=== PATIENT | female | born 1995 | race African-American/Black ===

== ENCOUNTER 2019-06-29 18:58 | Emergency (ER) | payer SELFPAY ==
[~2019-06-29] VITALS: Ht 149.9 cm; Wt 61.2 kg
[2019-06-29 19:10] VITALS: BP 119/60
--- NOTE | 2019-06-29 19:49 | PHYS DOC ---
Past Medical History Past Medical History: Other Additional Past Medical Histor: SICKLE CELL TRAIT (DEANNA NEGRON APRN) Past Surgical History: (DEANNA NEGRON APRN) Alcohol Use: Occasionally Drug Use: None (DEANNA NEGRON APRN) Attending Signature I have participated in the care of this patient and I have reviewed and agree wi th all pertinent clinical information above including history, exam, and recommendations. (KEL RAMIREZ MD) Adult General Chief Complaint Chief Complaint: ABDOMINAL PAIN HPI HPI Patient is a 24 year old female with no significant medical history who presents to the ED today complaining of her whole body hurting from her head to her toes including her eyelids, her fingers all the way to the toes, patient states symptoms began 2 days ago. Denies any fever. Denies any chance she is , she states her tubes are tied. Denies any nausea, vomiting, chest pain, shortness of breath. (DEANNA NEGRON APRN) Review of Systems Review of Systems Constitutional: Reports body pains. Denies fever or chills [] Eyes: Denies change in visual acuity, redness, or eye pain [] HENT: Denies nasal congestion or sore throat [] Respiratory: Denies cough or shortness of breath [] Cardiovascular: No additional information not addressed in HPI [] GI: Denies abdominal pain, nausea, vomiting, bloody stools or diarrhea [] : Denies dysuria or hematuria [] Musculoskeletal: Denies back pain or joint pain [] Integument: Denies rash or skin lesions [] Neurologic: Denies headache, focal weakness or sensory changes [] All other systems were reviewed and found to be within normal limits, except as documented in this note. (DEANNA NEGRON APRN) Allergies Allergies Allergies Coded Allergies Type Severity Reaction Last Updated Verified No Known Drug Allergies 06/29/19 No (KEL RAMIREZ MD) Physical Exam Physical Exam Constitutional: Well developed, well nourished, no acute distress, non-toxic appearance. [] HENT: Normocephalic, atraumatic, bilateral external ears normal, oropharynx moist, no oral exudates, nose normal. [] Eyes: PERRLA, EOMI, conjunctiva normal, no discharge. [] Neck: Normal range of motion, no tenderness, supple, no stridor. [] Cardiovascular:Heart rate regular rhythm, no murmur [] Lungs & Thorax: Bilateral breath sounds clear to auscultation [] Abdomen: Bowel sounds normal, soft, no tenderness, no masses, no pulsatile masses. [] Skin: Warm, dry, no erythema, no rash. [] Back: No tenderness, no CVA tenderness. [] Extremities: No tenderness, no cyanosis, no clubbing, ROM intact, no edema. [] Neurologic: Alert and oriented X 3, normal motor function, normal sensory function, no focal deficits noted. [] Psychologic: Affect normal, judgement normal, mood normal. [] (DEANNA NEGRON APRN) Current Patient Data Vital Signs Vital Signs Date Time Temp Pulse Resp B/P (MAP) Pulse Ox O2 Delivery O2 Flow Rate FiO2 06/29/19 19:10 98.8 111 16 119/60 (79) 100 Room Air 98.8 (KEL RAMIREZ MD) EKG EKG [] (DEANNA NEGRON APRN) Radiology/Procedures Radiology/Procedures [] (DEANAN NEGRON APRN) Course & Med Decision Making Course & Med Decision Making Pertinent Labs and Imaging studies reviewed. (See chart for details) This is a 24-year-old female patient who presents to the ED today complaining of body pains from her head on the way to her toes including parts of the body like eyelids, fingers and toes. Symptoms for have been going on for 2 days. Patient was given medical screening exam per hospital protocol. (DEANNA NEGRON APRN) Dragon Disclaimer Dragon Disclaimer This electronic medical record was generated, in whole or in part, using a voice recognition dictation system. (DEANNA NEGRON APRN) Departure Departure Impression: Primary Impression: Body aches Disposition: AGAINST MEDICAL ADVICE Condition: STABLE Referrals: NO PCP (PCP) DEANNA NEGRON APRN Jun 29, 2019 19:49 KEL RAMIREZ MD Jun 30, 2019 04:01
== END 2019-06-29 19:40 | disposition left against medical advice (07) ==
LOC: ER 18:58
DX: M79.10 Myalgia, unspecified site (principal); Z86.2 Personal history of diseases of the blood and blood-forming organs and certain disorders involving the immune mechanism
CPT/HCPCS: 99281

== ENCOUNTER 2019-08-19 11:35 | Emergency (ER) | payer SELFPAY | END 2019-08-19 12:43 | disposition left against medical advice (07) | LOC: ER 11:35 | DX: K04.7 Periapical abscess without sinus (principal); Z53.21 Procedure and treatment not carried out due to patient leaving prior to being seen by health care provider ==

== ENCOUNTER 2020-04-23 18:51 | Emergency (ER) | payer SELFPAY ==
[~2020-04-23] VITALS: Ht 149.9 cm; Wt 61.3 kg
[2020-04-23 21:10] VITALS: BP 123/73
[2020-04-23] MEDS ORDERED: CLIN300C8 PO (21:16)
[2020-04-23] MEDS ORDERED: NAPR-514 PO (21:16)
--- NOTE | 2020-04-23 21:16 | PHYS DOC ---
Past Medical History Past Medical History: Other Additional Past Medical Histor: SICKLE CELL TRAIT Past Surgical History: Smoking Status: Current Some Day Smoker Alcohol Use: Occasionally Drug Use: None General Adult EDM: Chief Complaint: OTHER COMPLAINTS HPI: HPI: Patient is a 25-year-old otherwise healthy female who presents with painful open wounds around her anal area. She states they have been draining recently. She denies any anal intercourse she has not seen any blister type lesions in the area she has nothing around her vaginal area that is causing any pain. She denies any fever chills or sweats. She has had no hematochezia and denies any abdominal pain. [] Review of Systems: Review of Systems: Constitutional: Denies fever or chills. [] Eyes: Denies change in visual acuity. [] HENT: Denies nasal congestion or sore throat. [] Respiratory: Denies cough or shortness of breath. [] Cardiovascular: Denies chest pain or edema. [] GI: Per HPI [] : Denies dysuria. [] Musculoskeletal: Denies back pain or joint pain. [] Integument: Denies rash. [] Neurologic: Denies headache, focal weakness or sensory changes. [] Endocrine: Denies polyuria or polydipsia. [] Lymphatic: Denies swollen glands. [] Psychiatric: Denies depression or anxiety. [] Heart Score: Risk Factors: Risk Factors: DM, Current or recent (<one month) smoker, HTN, HLP, family history of CAD, obesity. Risk Scores: Score 0 - 3: 2.5% MACE over next 6 weeks - Discharge Home Score 4 - 6: 20.3% MACE over next 6 weeks - Admit for Clinical Observation Score 7 - 10: 72.7% MACE over next 6 weeks - Early Invasive Strategies Allergies: Allergies: Allergies Coded Allergies Type Severity Reaction Last Updated Verified No Known Drug Allergies 06/29/19 No Physical Exam: PE: Constitutional: Well developed, well nourished, no acute distress, non-toxic appearance. [] HENT: Normocephalic, atraumatic, bilateral external ears normal, oropharynx moist, no oral exudates, nose normal. [] Eyes: PERRLA, EOMI, conjunctiva normal, no discharge. [] Neck: Normal range of motion, no tenderness, supple, no stridor. [] Cardiovascular:Heart rate regular rhythm, no murmur [] Lungs & Thorax: Bilateral breath sounds clear to auscultation [] Abdomen: Abdomen is nontender there is some tenderness in the perirectal area but I did not notice any herpetic type lesions no abscess I do not appreciate a fistula. [] Skin: Warm, dry, no erythema, no rash. [] Back: No tenderness, no CVA tenderness. [] Extremities: No tenderness, no cyanosis, no clubbing, ROM intact, no edema. [] Neurologic: Alert and oriented X 3, normal motor function, normal sensory funct ion, no focal deficits noted. [] Psychologic: Anxious. [] EKG: EKG: [] Radiology/Procedures: Radiology/Procedures: [] Course & Med Decision Making: Course & Med Decision Making Pertinent Labs and Imaging studies reviewed. (See chart for details) [] Dragon Disclaimer: Dragon Disclaimer: This electronic medical record was generated, in whole or in part, using a voice recognition dictation system. Departure Departure Impression: Primary Impression: Perianal cellulitis Disposition: 01 HOME, SELF-CARE Condition: STABLE Referrals: NO PCP (PCP) Patient Instructions: Anal Fistula Additional Instructions: Take antibiotics to completion. If pain continues you will need to be reevaluated in the emergency department or by your primary care physician. Scripts Naproxen (NAPROXEN) 500 Mg Tablet 1 TAB PO BID PRN for PAIN, #30 TAB 1 Refill Prov: ROBIN LOJA DO 04/23/20 Clindamycin Hcl (CLINDAMYCIN HCL) 300 Mg Capsule 1 CAP PO TID for Infection, #30 CAP Prov: ROBIN LOJA DO 04/23/20 Justicifation of Admission Dx: Justifications for Admission: Justification of Admission Dx: No ROBIN LOJA DO Apr 23, 2020 21:16
== END 2020-04-23 21:26 | disposition home or self-care (01) ==
LOC: ER 18:51
DX: L03.315 Cellulitis of perineum (principal); F17.200 Nicotine dependence, unspecified, uncomplicated; Z98.890 Other specified postprocedural states
CPT/HCPCS: 99283

== ENCOUNTER 2021-10-15 13:17 | Emergency (ER) | payer MEDICAID, OTHER ==
[~2021-10-15] VITALS: Ht 149.9 cm; Wt 65.9 kg
[~2021-10-15 13:17] MED LIST: CLIN-94 PO; NAPR-514 PO
[2021-10-15 14:30] VITALS: BP 138/82
--- NOTE | 2021-10-15 14:52 | PHYS DOC ---
Past Medical History Past Medical History: Sickle Cell Disease Additional Past Medical Histor: SICKLE CELL TRAIT (DEANNA NEGRON [employer] WA[employer]LINE [employer]OCK[employer]ITCH) Past Surgical History: (DEANNA NEGRON WAISTLINE JOINER LOCKSTITCH) Smoking Status: Current Every Day Smoker Alcohol Use: Occasionally Drug Use: None (DEANNA NEGRON WAISTLINE JOINER LOCKSTITCH) General Adult EDM: Chief Complaint: GENERALIZED BODY ACHES HPI: HPI: Patient is a 26 year old female who presents to the ED today complaining of subjective fevers, body aches, chills, symptoms for 3 days. Patient states she is unvaccinated against COVID-19 (DEANNA NEGRON WAISTLINE JOINER LOCKSTITCH) Review of Systems: Review of Systems: Constitutional: Reports body aches, chills, fevers Eyes: Denies change in visual acuity. [] HENT: Denies nasal congestion or sore throat. [] Respiratory: Denies cough or shortness of breath. [] Cardiovascular: Denies chest pain or edema. [] GI: Denies abdominal pain, nausea, vomiting, bloody stools or diarrhea. [] : Denies dysuria. [] Musculoskeletal: Denies back pain or joint pain. [] Integument: Denies rash. [] Neurologic: Denies headache, focal weakness or sensory changes. [] Psychiatric: Denies depression or anxiety. [] (DEANNA NEGRON [employer] WA[employer]) Heart Score: C/O Chest Pain: N/A Risk Factors: Risk Factors: DM, Current or recent (<one month) smoker, HTN, HLP, family history of CAD, obesity. Risk Scores: Score 0 - 3: 2.5% MACE over next 6 weeks - Discharge Home Score 4 - 6: 20.3% MACE over next 6 weeks - Admit for Clinical Observation Score 7 - 10: 72.7% MACE over next 6 weeks - Early Invasive Strategies (DEANNA NEGRON [employer] WA[employer]) Allergies: Allergies: Allergies Coded Allergies Type Severity Reaction Last Updated Verified No Known Drug Allergies 06/29/19 No (MIGDALIADEANNA Tejinder WAISTLINE [employer]ITCH) Physical Exam: PE: Constitutional: Well developed, well nourished, no acute distress, non-toxic appearance. [] HENT: Normocephalic, atraumatic, bilateral external ears normal, oropharynx moist, no oral exudates, nose normal. [] Eyes: PERRLA, EOMI, conjunctiva normal, no discharge. [] Neck: Normal range of motion, no tenderness, supple, no stridor. [] Cardiovascular:Heart rate regular rhythm, no murmur [] Lungs & Thorax: Bilateral breath sounds clear to auscultation [] Abdomen: Bowel sounds normal, soft, no tenderness, no masses, no pulsatile masses. [] Skin: Warm, dry, no erythema, no rash. [] Back: No tenderness, no CVA tenderness. [] Extremities: No tenderness, no cyanosis, no clubbing, ROM intact, no edema. [] Neurologic: Alert and oriented X 3, normal motor function, normal sensory function, no focal deficits noted. [] Psychologic: Affect normal, judgement normal, mood normal. [] (DEANNA NEGRON APRN) EKG: EKG: [] (DEANNA NEGRON APRN) Radiology/Procedures: Radiology/Procedures: [] (DEANNA NEGRON APRN) Course & Med Decision Making: Course & Med Decision Making Pertinent Labs and Imaging studies reviewed. (See chart for details) Is a 26-year-old female patient presenting today complaining of body aches, chills, fevers, symptoms began 3 days ago. She was tested for COVID-19 and influenza. Supportive care measures recommended. Results will be called to patient when available (DEANNA NEGRON APRN) Dragon Disclaimer: Dragon Disclaimer: This electronic medical record was generated, in whole or in part, using a voice recognition dictation system. (DEANNA NEGRON APRN) Departure Departure Impression: Primary Impression: Person under investigation for COVID-19 Additional Impressions: Fever Qualified Codes: R50.9 - Fever, unspecified Body aches Disposition: HOME / SELF CARE / HOMELESS Condition: STABLE Referrals: NO PCP (PCP) followup with your doctor in 1 week Patient Instructions: Fever, Adult, [id number], Viral Infections Additional Instructions: You were tested for influenza and COVID-19. Quarantine yourself until you get results. Take Tylenol or Motrin as needed for pain or fever. Push fluids, rest, maintain good hand hygiene. Follow-up with your doctor in 1 to 2 weeks Attending Signature I have participated in the care of this patient and I have reviewed and agree with all pertinent clinical information above including history, exam, and recommendations. (ALIS IQBAL DO) DEANNA NEGRON WA[employer]LINE [employer] LOCKSTITCH Oct 15, 2021 14:52 ALIS IQBAL DO Oct 15, 2021 15:58
[2021-10-15 15:50] LABS: INFLUENZA A PATIENT NEGATIVE (NEGATIVE); INFLUENZA B PATIENT NEGATIVE (NEGATIVE)
== END 2021-10-15 15:26 | disposition home or self-care (01) ==
LOC: ER 13:17
DX: R50.9 Fever, unspecified (principal); M79.10 Myalgia, unspecified site; F17.200 Nicotine dependence, unspecified, uncomplicated; Z20.822 Contact with and (suspected) exposure to COVID-19
CPT/HCPCS: 87428; 99283; U0003; U0005